=== PATIENT | male | born 1995 | race Caucasian/White ===

== ENCOUNTER 2020-08-20 09:24 | Observation (INO) ==
[2020-08-20] MEDS ORDERED: SODIUM CHLORIDE 0.9% 1000ML 1,000 ML IV ONE (09:38)
[2020-08-20] MEDS ORDERED: GI COCKTAIL ED USE PO ONE (09:38)
--- NOTE | 2020-08-20 09:41 | Emergency Department Note ---
Impression & Plan Spontaneous pneumothorax, Chest pain ED Provider Note NAME: AURORA RADFORD AGE: 24 SEX: M : 1995 ARRIVES VIA: Walk-In INFORMANT: Patient ED PROVIDER(S): Dioni Edouard DO CHIEF COMPLAINT: Chest pain HPI: Patient is a 24-year-old male who presents to the ER for midsternal chest pain which has been present constantly for the past 2 days. He notes it is w orse with laying flat and after eating and drinking. It improves when he is up moving around and walking. He denies any headache or change in vision. No arm or jaw pain. No belly pain, nausea, vomiting, or diarrhea. No dysuria, urgency, or frequency. No other exacerbating or remitting factors. Patient denies diabetes, hypertension, hyperlipidemia, CAD, history of sudden at a young age, and smoking. Patient denies swelling of calves, recent trips, history of immobilization or recent surgery, prior history of DVT, hemoptysis, and history of malignancy. Denies any trauma. ROS: See above HPI for pertinent positives & negatives. A total of 10 systems reviewed and were otherwise negative. PAST MEDICAL HISTORY:See Below PAST SURGICAL HISTORY:See Below FAMILY HISTORY:See Below SOCIAL HISTORY:See Below HOME MEDICATIONS:See Below ALLERGIES:See Below VITALS:See Below PHYSICAL EXAMINATION: GENERAL: Sitting up in bed, alert, well appearing, well nourished, no distress, non-toxic EYE EXAM: normal conjunctiva. OROPHARYNX: no exudate, no erythema, lips, buccal mucosa, and tongue normal and mucous membranes are moist NECK: supple, no nuchal rigidity, no adenopathy, non-tender LUNGS: Clear to auscultation. Normal chest wall mechanics HEART: no murmurs, S1 normal and S2 normal ABDOMEN: abdomen soft, non-tender, normo-active bowel sounds, no masses, no rebound or guarding. UPPER EXTREMITIES: upper extremities are grossly normal. LOWER EXTREMITIES: No pitting edema. Surgical bilateral NEURO EXAM: Normal sensorium, cranial nerves II-XII grossly intact, normal speech, no gross weakness of arms, no gross weakness of legs. MEDICAL DECISION MAKING: Patient is a 24-year-old male who presents to the ER for chest pain. IV was established blood work was obtained. Chest x-ray with a large right pneumothorax. Patient was placed on nonrebreather. Labs show no significant leukocytosis or anemia. D-dimer was negative. BMP with mild hypokalemia. LFTs bilirubin was unremarkable. Troponin was negative. Covid was negative. Chest x-ray with a large right-sided pneumothorax. This was reviewed with Dr. Schultz from pulmonology. I placed a chest tube on the right side. Added to small amount of wall suction and nearly completely resolved. He was removed from the wall suction. He was initially on a nonrebreather after we initially saw the chest x-ray. He was not hypoxic or hypotensive or tachycardic. He was updated bedside discussed with hospitalist admitted for further work-up. Triage Nursing notes reviewed. Limited review of prior medical records performed Vital Signs: reviewed and remarkable for HTN and tachy Differential diagnosis: Differential diagnoses includes but is not limited to acute coronary syndrome, myocardial infarction, pericarditis, pulmonary embolus, aortic dissection, pneumonia, pneumothorax, musculoskeletal, shingles, esophageal. ER treatment provided: See below Diagnostics interpreted by me: ECG: Sinus rhythm rate of 75 Normal axis No PVCs Right bundle branch block QTC 397 Cardiac Monitoring: An order was placed for continuous cardiac monitoring. The monitor shows a rate of 81 with sinus rhythm. Laboratory studies: As stated above and show below. Imaging studies: Portable AP upright 1 view the chest shows large right-sided pneumothorax Consultation(s): Discussed with pulmonology as stated above Discussed with hospitalist for further evaluation Procedures: Tube Thoracostomy Indication: Pneumothorax Written consent was obtained after the risks and benefits were explained, including but not limited to cardiac/liver/lung injury, bleeding, scarring, infection, pain, and bone/joint/nerve damage. At this time, the risks of the procedure are less than the risks of NOT performing the procedure. A time out was taken and the correct patient and site identified. The patient was prepped and draped in the standard surgical fashion. 1% lidocaine without epinephrine was infused over the 3rd intercostal space into the subcutaneous tissue. A 1 cm incision was made transversely in the mid clavicular line in the third intercostal space. Gentle traction was placed on the Thora vent. Entered chest wall cavity with movement of the one-way valve. Steel tipped was removed and catheter was inserted into the chest wall. For a short period of time this was placed to suction. Patient started coughing. Repeat chest x-ray confirms resolution of the pneumothorax. Critical Care: I have personally spent 31 minutes of critical care time in the direct management of this patient. This includes bedside care, interpretation of diagnostic studies, and testing, discussion with consultants, patient, and family members, and other required patient management activities. This 31 minutes is in excess of all separately billable procedures. Past Med/Surg History Medical History (Updated 08/20/20 @ 15:39 by Dioin Edouard DO) No active medical problems Surgical History (Updated 08/20/20 @ 12:17 by Eric Sherman DO) No pertinent past surgical history Family History (Updated 08/20/20 @ 12:18 by Eric Sherman DO) Denies family history of Pneumothorax Deep vein thrombosis Genetic disorder Lung disease Social History (Updated 08/20/20 @ 12:16 by Eric Sherman DO) Smoking Status: Never smoker Hx Alcohol Use: No Hx Substance Use: No Feels Safe at Home: Yes Allergies Allergies Allergy/AdvReac Type Severity Reaction Status Date / Time No Known Allergies Allergy Unverified 08/20/20 10:40 Home Meds Home Medications Medication Instructions Recorded Confirmed No Known Home Medications 08/20/20 08/20/20 Results & Data (ED) Vital Signs Vital Signs - 24 hr 08/20/20 09:26 08/20/20 09:52 08/20/20 10:00 Temperature 36.1 C L Temperature Source Temporal Artery Scan Pulse Rate 97 H 75 76 Pulse Rate from SpO2 Sensor Respiratory Rate 18 16 23 Respiratory Effort / Characteristics Non-Labored Respiratory Depth Normal Blood Pressure 150/99 H 115/80 124/86 Blood Pressure Mean 116 91 98 Pulse Oximetry 99 Oxygen Delivery Method Room Air Oxygen Flow Rate Sepsis Recent Fever Within 48 Hours No Sepsis New/Unexplained Change in Mental Status N/A Sepsis Action Taken by Nursing No Action Required 08/20/20 10:03 08/20/20 10:05 08/20/20 10:30 Temperature Temperature Source Pulse Rate 72 Pulse Rate from SpO2 Sensor 73 Respiratory Rate 22 Respiratory Effort / Characteristics Respiratory Depth Blood Pressure 141/93 H Blood Pressure Mean 109 Pulse Oximetry 100 100 100 Oxygen Delivery Method Non-rebreather Non-rebreather Oxygen Flow Rate 15 15 Sepsis Recent Fever Within 48 Hours Sepsis New/Unexplained Change in Mental Status Sepsis Action Taken by Nursing 08/20/20 11:00 08/20/20 11:27 08/20/20 11:30 Temperature Temperature Source Pulse Rate 78 84 84 Pulse Rate from SpO2 Sensor 75 83 87 Respiratory Rate 22 18 19 Respiratory Effort / Characteristics Respiratory Depth Blood Pressure 126/92 131/97 156/96 H Blood Pressure Mean 103 108 116 Pulse Oximetry 100 100 97 Oxygen Delivery Method Non-rebreather Non-rebreather Oxygen Flow Rate 15 15 Sepsis Recent Fever Within 48 Hours Sepsis New/Unexplained Change in Mental Status Sepsis Action Taken by Nursing 08/20/20 12:01 08/20/20 12:30 Temperature Temperature Source Pulse Rate 86 88 Pulse Rate from SpO2 Sensor 85 90 Respiratory Rate 25 H 22 Respiratory Effort / Characteristics Respiratory Depth Blood Pressure 154/109 H 143/89 H Blood Pressure Mean 124 107 Pulse Oximetry 100 97 Oxygen Delivery Method Oxygen Flow Rate Sepsis Recent Fever Within 48 Hours Sepsis New/Unexplained Change in Mental Status Sepsis Action Taken by Nursing Laboratory Data Result diagrams: 08/20/20 09:33 08/20/20 09:33 Lab Results 08/20/20 08/20/20 08/20/20 Range/Units 09:33 09:33 09:33 WBC 5.38 (4.8-10.8) K/uL RBC 5.63 (4.7-6.1) M/uL Hgb 17.8 (14.0-18.0) g/dL Hct 50.3 (42-52) % MCV 89.3 (80-100) fL MCH 31.6 (25-34) pg MCHC 35.4 (32-36) g/dL RDW Std Deviation 39.9 (36.4-46.3) fL RDW Coeff of Amalia 12.2 (11.5-14.5) % Plt Count 281 (130-400) K/uL MPV 9.8 (7.4-10.4) fL Immature Gran % (Auto) 0.0 % Neut % (Auto) 54.3 % Lymph % (Auto) 33.6 % [place] % (Auto) 9.3 % Eos % (Auto) 2.6 % Baso % (Auto) 0.2 % Neut # (Auto) 2.92 (1.4-6.5) K/uL Lymph # (Auto) 1.81 (1.2-3.4) K/uL [place] # (Auto) 0.50 (0.11-0.59) K/uL Eos # (Auto) 0.14 (0-0.5) K/uL Baso # (Auto) 0.01 (0-0.2) K/uL Immature Gran # (Auto) 0.00 (0.00-0.02) K/uL APTT 31.5 H (21.0-31.0) Seconds PTT Ratio 1.2 D-Dimer < 190 (0-500) ug/L FEU Sodium 141 (136-145) mmol/L Potassium 3.3 L (3.5-5.1) mmol/L Chloride 107 (98-107) mmol/L Carbon Dioxide 29 (21-32) mmol/L Anion Gap 5.0 (3-11) BUN 12 (7-18) mg/dl Creatinine 1.00 (0.6-1.4) mg/dl Est Cr Clr Drug Dosing 114.6 ml/min Est GFR ( Amer) 122.4 ml/min Est GFR (Non-Af Amer) 105.6 ml/min BUN/Creatinine Ratio 11.5 (10-20) Glucose 73 (70-99) mg/dl Calcium 10.2 H (8.5-10.1) mg/dl Total Bilirubin 0.9 (0.2-1) mg/dl AST 30 (15-37) U/L ALT 58 (12-78) U/L Alkaline Phosphatase 77 (45-117) U/L Troponin I < 0.015 (0-0.045) ng/ml Total Protein 8.5 H (6.4-8.2) gm/dl Albumin 5.1 H (3.4-5.0) gm/dl Globulin 3.4 (2.5-4.0) gm/dl Albumin/Globulin Ratio 1.5 (0.9-2) Lipase 134 (73-393) U/L COVID-19 Eval Order SARS-CoV-2 (PCR) (Negative) 08/20/20 08/20/20 Range/Units 10:40 10:40 WBC (4.8-10.8) K/uL RBC (4.7-6.1) M/uL Hgb (14.0-18.0) g/dL Hct (42-52) % MCV (80-100) fL MCH (25-34) pg MCHC (32-36) g/dL RDW Std Deviation (36.4-46.3) fL RDW Coeff of Amalia (11.5-14.5) % Plt Count (130-400) K/uL MPV (7.4-10.4) fL Immature Gran % (Auto) % Neut % (Auto) % Lymph % (Auto) % [place] % (Auto) % Eos % (Auto) % Baso % (Auto) % Neut # (Auto) (1.4-6.5) K/uL Lymph # (Auto) (1.2-3.4) K/uL [place] # (Auto) (0.11-0.59) K/uL Eos # (Auto) (0-0.5) K/uL Baso # (Auto) (0-0.2) K/uL Immature Gran # (Auto) (0.00-0.02) K/uL APTT (21.0-31.0) Seconds PTT Ratio D-Dimer (0-500) ug/L FEU Sodium (136-145) mmol/L Potassium (3.5-5.1) mmol/L Chloride (98-107) mmol/L Carbon Dioxide (21-32) mmol/L Anion Gap (3-11) BUN (7-18) mg/dl Creatinine (0.6-1.4) mg/dl Est Cr Clr Drug Dosing ml/min Est GFR ( Amer) ml/min Est GFR (Non-Af Amer) ml/min BUN/Creatinine Ratio (10-20) Glucose (70-99) mg/dl Calcium (8.5-10.1) mg/dl Total Bilirubin (0.2-1) mg/dl AST (15-37) U/L ALT (12-78) U/L Alkaline Phosphatase (45-117) U/L Troponin I (0-0.045) ng/ml Total Protein (6.4-8.2) gm/dl Albumin (3.4-5.0) gm/dl Globulin (2.5-4.0) gm/dl Albumin/Globulin Ratio (0.9-2) Lipase (73-393) U/L COVID-19 Eval Order Covid19 at [facility] SARS-CoV-2 (PCR) NEGATIVE (Negative) Administered Medications Oxycodone HCl (Oxycodone Hcl Ir 5 Mg Tab (Immediate Release)) 5 mg PO Q6H PRN PRN Reason: Pain Stop: 09/03/20 14:47 Last Admin: 08/20/20 15:00 Dose: 5 mg Documented by: [id number] Discontinued Medications Al Hydrox/Mg Hydrox/Simethicone (Gi Cocktail Ed Use) 1 dose PO ONE ONE Stop: 08/20/20 09:39 Last Admin: 08/20/20 09:50 Dose: 1 dose Documented by: [id number] Fentanyl Citrate (Fentanyl Citrate 100 Mcg/2 Ml Vial) Confirm Administered Dose 100 mcg .ROUTE .STK-MED ONE Stop: 08/20/20 11:10 Last Admin: 08/20/20 11:20 Dose: 100 mcg Documented by: [id number] Sodium Chloride (Nss 1000ml) 1,000 mls @ 999 mls/hr IV .Q1H1M ONE Stop: 08/20/20 10:38 Last Infusion: 08/20/20 10:57 Dose: 0 mls/hr Documented by: [id number] Admin: 08/20/20 09:50 Dose: 999 mls/hr Documented by: [id number] Lidocaine HCl (Lidocaine Hcl 2% (Local) Inj 50 Ml Vial) Confirm Administered Dose 50 ml .ROUTE .STK-MED ONE Stop: 08/20/20 11:15 Last Admin: 08/20/20 11:41 Dose: 50 ml Documented by: [id number] Imaging Data Radiologist's Impression: Chest X-Ray 08/20/20 09:33 XR chest 1V portable CLINICAL HISTORY: Atypical chest pain COMPARISON STUDY: No previous studies for comparison. FINDINGS: The heart is normal in size. There is a moderate to large right-sided pneumothorax.[There is equivocal minimal "tension". There is no focal pulmonary consolidation. There are no significant pleural effusions. IMPRESSION: 1. Moderate to large right-sided pneumothorax. This report was called to the emergency room. ACT 112: Negative or not required by law. Electronically signed by: Kamar Arcos M.D. 08/20/2020 9:52 AM Chest X-Ray 08/20/20 11:26 SINGLE VIEW CHEST CLINICAL HISTORY: Chest tube placement. FINDINGS: An AP, portable, upright chest radiograph is compared to study performed earlier the same day 08/20/2020. A chest tube projects over the right mid chest. There is a moderate to large persistent right pneumothorax. This has not significantly changed from previous. There is atelectasis of the right lower lung. The cardiomediastinal silhouette is unremarkable. The left lung appears clear. The trachea is midline. No left-sided pneumothorax is seen. The bony thorax is grossly intact. IMPRESSION: 1. A chest tube projects over the right mid chest. 2. A moderate to large right pneumothorax is unchanged. 3. There is increasing atelectasis of the right lower lung. 4. The left lung appears clear. 5. The trachea is midline. ACT 112: Negative or not required by law. Electronically signed by: Joce Mclean M.D. 08/20/2020 12:09 PM Chest X-Ray 08/20/20 12:13 XR chest 1V portable CLINICAL HISTORY: pneumothorax COMPARISON STUDY: 08/20/2020 FINDINGS: A right-sided pleural catheter is visualized. There is been interval reexpansion of the right lung. There are right basilar airspace opacities, likely atelectatic.[ IMPRESSION: 1. Interval resolution of the previously described right-sided pneumothorax 2. Right basilar airspace opacities likely atelectatic ACT 112: Negative or not required by law. Electronically signed by: Kamar Arcos M.D. 08/20/2020 12:33 PM Discharge Plan Visit Data Chief Complaint: Chest Pain Stated Complaint: CHEST PAINx2 DAYS,TROUBLE BREATHING,PAIN IN THROAT ED Provider: Dioin Edouard Discharge Problem: Spontaneous pneumothorax, Chest pain Patient Disposition: Admitted As Inpatient Discharge Instructions Interventions: ED Discharge Assessment Last Done: 08/20/20 13:25 Discharge Problem: Chest pain Qualifiers: Chest pain type: unspecified Qualified Code(s): R07.9 - Chest pain, unspecified
--- NOTE | 2020-08-20 09:54 | XRay Report ---
XR chest 1V portable CLINICAL HISTORY: Atypical chest pain COMPARISON STUDY: No previous studies for comparison. FINDINGS: The heart is normal in size. There is a moderate to large right-sided pneumothorax.[There i s equivocal minimal "tension". There is no focal pulmonary consolidation. There are no significant pl eural effusions. IMPRESSION: 1. Moderate to large right-sided pneumothorax. This report was called to the emergency room. ACT 112: Negative or not required by law. Electronically signed by: Kamar Arcos M.D. 08/20/2020 9:52 AM
[2020-08-20 09:56] LABS: Basophils # (auto) 0.01 K/uL (0-0.2); Basophils % (auto) 0.2 %; Eosinophils # (auto) 0.14 K/uL (0-0.5); Eosinophils % (auto) 2.6 %; Hematocrit (blood only) 50.3 % (42-52); Hemoglobin 17.8 g/dL (14.0-18.0); Lymphocytes # (auto) 1.81 K/uL (1.2-3.4); Lymphocytes % (auto) 33.6 %; Mean Corpuscular Hemoglobin 31.6 pg (25-34); Mean Corpuscular Hgb Conc 35.4 g/dL (32-36); Mean Corpuscular Volume 89.3 fL (80-100); Mean Platelet Volume 9.8 fL (7.4-10.4); Monocytes % (auto) 9.3 %; Neutrophils # (auto) 2.92 K/uL (1.4-6.5); Neutrophils % (auto) 54.3 %; Platelet Count 281 K/uL (130-400); RDW Coefficient of Variation 12.2 % (11.5-14.5); RDW Standard Deviation 39.9 fL (36.4-46.3); Red Blood Count 5.63 M/uL (4.7-6.1); White Blood Count 5.38 K/uL (4.8-10.8)
[2020-08-20 10:16] LABS: Alanine Aminotransferase 58 U/L (12-78); Albumin Level 5.1 gm/dl (3.4-5.0); Aspartate Aminotransferase 30 U/L (15-37); BUN Creatinine Ratio 11.5 (10-20); Blood Urea Nitrogen 12 mg/dl (7-18); Calcium 10.2 mg/dl (8.5-10.1); Carbon Dioxide 29 mmol/L (21-32); Chloride 107 mmol/L (98-107); Creatinine Clr Calc Pharmacy 114.6 ml/min; Est GFR (African American) 122.4 ml/min; Est GFR (Non-African American) 105.6 ml/min; Glucose 73 mg/dl (70-99); Lipase 134 U/L (73-393); Potassium 3.3 mmol/L (3.5-5.1); Sodium 141 mmol/L (136-145)
[2020-08-20 10:21] LABS: Albumin Globulin Ratio 1.5 (0.9-2); Alkaline Phosphatase 77 U/L (45-117); Bilirubin,Total 0.9 mg/dl (0.2-1); Globulin 3.4 gm/dl (2.5-4.0); Total Protein 8.5 gm/dl (6.4-8.2); Troponin I < 0.015 ng/ml (0-0.045)
[2020-08-20 10:23] LABS: D Dimer < 190 ug/L FEU (0-500); Partial Thromboplastin Ratio 1.2; Partial Thromboplastin Time 31.5 Seconds (21.0-31.0)
[2020-08-20] MEDS ORDERED: fentaNYL citrate 100 MCG/2 ML VIAL ONE (11:09)
[2020-08-20] MEDS ORDERED: LIDOCAINE 2% LOCAL 50 ML VIAL ONE (11:14)
--- NOTE | 2020-08-20 12:11 | XRay Report ---
SINGLE VIEW CHEST CLINICAL HISTORY: Chest tube placement. FINDINGS: An AP, portable, upright chest radiograph is compared to study performed earlier the same d ay 08/20/2020. A chest tube projects over the right mid chest. There is a moderate to large persistent right pneumothorax. This has not significantly changed from previous. There is atelectasis of the ri ght lower lung. The cardiomediastinal silhouette is unremarkable. The left lung appears clear. The tr achea is midline. No left-sided pneumothorax is seen. The bony thorax is grossly intact. IMPRESSION: 1. A chest tube projects over the right mid chest. 2. A moderate to large right pneumothorax is unchanged. 3. There is increasing atelectasis of the right lower lung. 4. The left lung appears clear. 5. The trachea is midline. ACT 112: Negative or not required by law. Electronically signed by: Joce Mclean M.D. 08/20/2020 12:09 PM
--- NOTE | 2020-08-20 12:12 | History & Physical Report ---
Date of Service August 20, 2020 Assessment & Plan (1) Spontaneous pneumothorax: Acute decompression emergency room We will consult general surgery for possible chest tube placement Consult pulmonology per patient request, consideration of underlying cause I did answer questions best my ability, patient does not have any obvious evidence of genetic disorder, lung disease. Suspect idiopathic pneumothorax History of Present Illness Chief Complaint: Chest pain Primary Care Provider: NO PCP This is a 24-year-old male with no past medical history presents today complaining of 2 days of chest pain. Patient is a good historian. As noted, this started approximately 2 days ago. He had a brief episode that seem to be self-limited but became much worse today and was constant. He noted that it was worse when he was lying flat but better standing up. He had no cough, congestion, fever/chills, or other symptoms. The symptoms became worse enough that he presented to the emergency room for further evaluation. Plain film of the chest showed a large pneumothorax in the right chest. ER placed a small needle decompression device in his right chest. At the time my evaluation, patient was feeling much better. His O2 sats were 96% on room air after nonrebreather was removed. Allergies Allergy/AdvReac Type Severity Reaction Status Date / Time No Known Allergies Allergy Unverified 08/20/20 10:40 Home Medications Medication Instructions Recorded Confirmed Type No Known Home Medications 08/20/20 08/20/20 History Past Med/Surg History Medical History (Updated 08/20/20 @ 12:20 by Eric Sherman DO) No active medical problems Surgical History (Updated 08/20/20 @ 12:17 by Eric Sherman DO) No pertinent past surgical history Family History (Updated 08/20/20 @ 12:18 by Eric Sherman DO) Denies family history of Pneumothorax Deep vein thrombosis Genetic disorder Lung disease Social History (Updated 08/20/20 @ 12:16 by Eric Sherman DO) Smoking Status: Never smoker Hx Alcohol Use: No Hx Substance Use: No Feels Safe at Home: Yes Review of Systems Constitutional: no fever, no chills, no body aches and no fatigue Respiratory: + dyspnea on exertion and + pain on inspiration; no cough, no chest congestion and no dyspnea Cardiovascular: no chest pain, no chest pain at rest, no radiating jaw, neck or arm pain, no dyspnea, no dyspnea on exertion and no orthopnea Gastrointestinal: no abdominal pain, no early satiety, no nausea, no vomiting, no constipation and no diarrhea/loose stools Genitourinary: no dysuria, no difficulty urinating, no urinary hesitancy and no urinary incontinence Integumentary: no rash and no lesions Neurologic: no falls and no localized weakness Physical Exam Constitutional: WD/WN, vitals as above average body habitus, cooperative and comfortable; no acute distress Respiratory: normal respiratory effort, lungs clear to auscultation Auscultation: lungs clear to auscultation bilaterally Rosangela depression device spot on right chest Cardiovascular: RRR, no murmur, no edema Gastrointestinal (Abdomen): normal bowel sounds, soft, nontender, no hepatosplenomegaly Musculoskeletal: no cyanosis or clubbing, extremities motor strength 5/5 Skin: no rashes, warm and dry Neurologic: PERRL, EOMI, accommodation nl, no face palsy, no dysarthria Results & Data Results & Data ([facility]) Vital Signs (Past 12 Hours) Vital Signs Temp Pulse Resp BP Pulse Ox 08/20/20 11:30 84 19 156/96 H 97 08/20/20 11:27 84 18 131/97 100 08/20/20 11:00 78 22 126/92 100 08/20/20 10:30 72 22 141/93 H 100 08/20/20 10:05 100 08/20/20 10:03 100 08/20/20 10:00 76 23 124/86 08/20/20 09:52 75 16 115/80 08/20/20 09:26 36.1 C L 97 H 18 150/99 H 99 PG Care Time/CCT Total # of Minutes Spent Total Time Spent with Patient: Total time spent is greater than 50% in coordination of care (as documented) at patient's floor/unit and/or counseling patient: Coding Level of Care Code 54690 Initial Inpt Care Lvl 3 Diagnoses Spontaneous pneumothorax J93.83
--- NOTE | 2020-08-20 12:35 | XRay Report ---
XR chest 1V portable CLINICAL HISTORY: pneumothorax COMPARISON STUDY: 08/20/2020 FINDINGS: A right-sided pleural catheter is visualized. There is been interval reexpansion of the rig ht lung. There are right basilar airspace opacities, likely atelectatic.[ IMPRESSION: 1. Interval resolution of the previously described right-sided pneumothorax 2. Right basilar airspace opacities likely atelectatic ACT 112: Negative or not required by law. Electronically signed by: Kamar Arcos M.D. 08/20/2020 12:33 PM
--- NOTE | 2020-08-20 13:47 | Electrocardiogram Report ---
Test Reason : Blood Pressure : / mmHG Vent. Rate : 075 BPM Atrial Rate : 075 BPM P-R Int : 148 ms QRS Dur : 092 ms QT Int : 356 ms P-R-T Axes : 087 086 075 degrees QTc Int : 397 ms Sinus rhythm with marked sinus arrhythmia RSR' or QR pattern in V1 suggests right ventricular conduction delay Otherwise normal ECG No previous ECGs available Confirmed by Carlos Arenas ([id number]) on 08/20/2020 1:46:37 PM Referred By: Confirmed By:Carlos Arenas
[2020-08-20] MEDS ORDERED: ONDANSETRON INJ 2 MG/ML 2 ML VIAL IV PRN (14:09)
[2020-08-20] MEDS ORDERED: ACETAMINOPHEN 325 MG TAB PO PRN (14:09)
[2020-08-20] MEDS: oxyCODONE HCL IR 5 MG TAB (IMMEDIATE RELEASE) PO PRN ×2 (15:00→22:44)
--- NOTE | 2020-08-20 16:58 | Pulmonary Consultation ---
Date of Consultation August 20, 2020 Assessment & Plan (1) Spontaneous pneumothorax: Chest x-ray 08/20/2020 personally reviewed: Large right-sided pneumothorax with mediastinal shift to the left. --Primary spontaneous pneumothorax Patient has no underlying known lung disease like asthma or COPD This is his first episode Patient already had a chest tube placement. No subcu emphysema appreciated No air leak appreciated Continue to keep chest tube to waterseal --Shortness of breath Improved after putting the chest tube in Plan: Continue with chest tube to waterseal No air leak was appreciated on currently to suction I will do a CT chest to see if there are any underlying blebs which are the most common causes of primary spontaneous pneumothoraces Given there is no continuous air leak there is no current indication for VATS. Pain management further chest side pain I spoke with patient as well as patient's father on the phone. All questions inquiries of both of them were answered in depth. Please note the above document was generated using voice recognition software. It may contain grammatical, syntax or spelling errors.Any formal questions or concerns about the content, text or information contained within the body of this dictation should be directly addressed to the provider for clarification. (2) Chest pain: Chest pain type: unspecified Qualified Code(s): R07.9 - Chest pain, unspecified (3) Shortness of breath: (4) Bleb, lung: History of Present Illness Attending Physician: Eric Sherman DO History of Present Illness 24-year-old male present to the hospital with complaints of right-sided chest pain and worsening shortness of breath. Patient was found to have right-sided tension pneumothorax. Pulmonary were consulted to take care of of the chest tube I was given a call by Dr. Edouard from the ED regarding the pneumothorax. I advised him to put chest tube as soon as possible At the time of examination patient already had a chest tube placed in. His chest x-ray post chest tube showed good reinflation of the lung. With very small right apical pneumo There was no air leak appreciated Patient did complain of chest pain at the site of the chest tube but it was not severe enough. His breathing was much better compared to when he came to the hospital. He denies any history of trauma to the right side of the chest. 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 Denies any recent gliding, diving or flying in a plane. He denies any history of pneumothoraces in the past He did say that when he was a child he had bad infection in the lung unsure which lung it was. Social history: Non-smoker, no illicit drug use, no alcohol use. Denies any family history of any lung disease. Allergies Allergy/AdvReac Type Severity Reaction Status Date / Time No Known Allergies Allergy Unverified 08/20/20 10:40 Home Medications Medication Instructions Recorded Confirmed Type No Known Home Medications 08/20/20 08/20/20 History Patient History Medical History (Updated 08/21/20 @ 09:51 by Marizol White MD) No active medical problems Surgical History (Updated 08/20/20 @ 12:17 by Eric Sherman DO) No pertinent past surgical history Family History (Updated 08/20/20 @ 12:18 by Eric Sherman DO) Denies family history of Pneumothorax Deep vein thrombosis Genetic disorder Lung disease Social History (Updated 08/20/20 @ 12:16 by Eric Sherman DO) Smoking Status: Never smoker Second Hand Exposure: No; Do You Dip or Chew Tobacco: No; Tobacco Cessation Education Requested by Patient: No Hx Alcohol Use: No Hx Substance Use: No Preferred Language: Setswana Communication Ability: Effective Assurance Assistant Required: No Beliefs That Will Affect Care: None Current Living Situation: Other Current Living Situation Comment: [employer] Feels Safe at Home: Yes Safety Concerns: Feels Safe At This Time Assistive Devices: None Review of Systems Review of Systems: All systems reviewed & are unremarkable except as noted in HPI & below Physical Exam Physical Exam: Constitutional: No acute distress HEENT: EOMI, PERRLA, no subcu emphysema Respiratory system: Decreased air entry bilaterally, no wheeze, no rhonchi, no crackles CVS: S1-S2 positive, no murmurs or gallops Abdomen: Soft, nontender, nondistended, positive bowel sounds x4 Extremities: +2 pulses bilaterally radialis/ dorsalis pedis, no cyanosis, no edema, no clubbing Neuro: Awake alert oriented x3 Psych: Normal mood and affect G/U: No [facility] Right-sided chest tube in place Skin: no rashes, warm and dry Lymphatic: no cervical or axillary lymphadenopathy Results & Data Results & Data ([facility]) Vital Signs (Past 12 Hours) Vital Signs Temp Pulse Pulse Resp BP BP Pulse Ox 08/20/20 14:15 36.8 C 82 20 129/85 98 08/20/20 13:00 78 19 132/83 97 08/20/20 12:30 88 22 143/89 H 97 08/20/20 12:01 86 25 H 154/109 H 100 08/20/20 11:30 84 19 156/96 H 97 08/20/20 11:27 84 18 131/97 100 08/20/20 11:00 78 22 126/92 100 08/20/20 10:30 72 22 141/93 H 100 08/20/20 10:05 100 08/20/20 10:03 100 08/20/20 10:00 76 23 124/86 08/20/20 09:52 75 16 115/80 08/20/20 09:26 36.1 C L 97 H 18 150/99 H 99 PG Care Time/CCT Total # of Minutes Spent Total Time Spent with Patient: Total time spent is greater than 50% in coordination of care (as documented) at patient's floor/unit and/or counseling patient: Coding Level of Care Code 25524 Inpt Consult Level 4 Diagnoses Spontaneous pneumothorax J93.83 Chest pain R07.9 Chest pain type: unspecified Shortness of breath R06.02 Bleb, lung J43.9
--- NOTE | 2020-08-20 17:40 | CT Scan Report ---
CT chest diagnostic wo con CT DOSE: 287.56 mGy.cm HISTORY: Follow-up pneumothorax. Evaluate for a bladder. TECHNIQUE: Multiaxial CT images of the chest were performed without contrast. A dose lowering techni que was utilized adhering to the principles of ALARA. COMPARISON: Chest 08/20/2020. FINDINGS: There is a tiny right-sided pneumothorax remaining. There is a cluster of right apical bleb s best seen on image 30. These measure a total size of 3.5 cm. Right anterior thoracostomy tube termi nates within the anterior pleural space. This is in good position. Multiple linear densities within t he right mid to lower lung zone favor subsegmental atelectasis. There are a few additional tiny left apical blebs measuring up to 6 mm in size. The central airways are patent. No fractures within the vi sualized osseous structures. No mediastinal or hilar lymphadenopathy. The heart is normal in size. No pleural or pericardial effusions. Normal esophagus. There are few punctate foci of gas within the me diastinum likely result of the right-sided pneumothorax. Normal caliber thoracic aorta. Limited views of the upper abdomen demonstrate a normal liver and spleen. IMPRESSION: 1. Tiny right-sided pneumothorax remaining. The right-sided thoracostomy tube is in good position. 2. A cluster of right apical blebs measuring a total size of 3.5 cm. There are few subcentimeter left apical blebs noted. 3. A few punctate foci of gas within the mediastinum likely a result of the right-sided pneumothorax. ACT 112: Negative or not required by law. Electronically signed by: Emanuel Lao M.D. 08/20/2020 5:39 PM
--- NOTE | 2020-08-21 08:39 | XRay Report ---
XR chest 1V portable HISTORY: Follow-up pneumothorax. COMPARISON: Chest 08/20/2020. FINDINGS: Near complete resolution of the right lower lobe airspace opacities likely representing res olving atelectasis. Tiny right apical pneumothorax persists with a maximal pleural gap of 5 mm. Right -sided thoracostomy tube is unchanged in position. The left lung is clear. The heart is normal in siz e. IMPRESSION: Stable tiny right apical pneumothorax. The right thoracostomy tube is unchanged in position. ACT 112: Negative or not required by law. Electronically signed by: Emanuel Lao M.D. 08/21/2020 8:37 AM
--- NOTE | 2020-08-21 09:51 | Pulmonology Progress Note ---
Date of Service August 21, 2020 Assessment & Plan (1) Spontaneous pneumothorax: Chest x-ray 08/20/2020 personally reviewed: Large right-sided pneumothorax with mediastinal shift to the left. CT chest 08/20/2020 personally reviewed: Multiple blebs are appreciated in the right upper lobe apex, small bleb appreciated in the left upper lobe right-sided chest tube in place. Minimal atelectasis of the right middle lobe as well as right lower l obe. No mediastinal lymphadenopathy --Primary spontaneous pneumothorax Patient has no underlying known lung disease like asthma or COPD This is his first episode Patient already had a chest tube placement. No subcu emphysema appreciated No air leak appreciated Continue to keep chest tube to waterseal --Bilateral apical blebs More prominent in the right side I think rupture one of the blebs is most likely the reason of his spontaneous pneumothorax Patient will always be at risk for recurrent spontaneous pneumothorax in the future --Shortness of breath Improved after putting the chest tube in Plan: Chest x-ray from today shows small apical pneumo I am going to clamp the tube today repeat a chest x-ray tomorrow and if there is no change in size of the pneumo we will try to take the tube out Patient will always be a high risk for recurrent pneumothorax. Given this is primary spontaneous pneumo and patient not participating in any high risk activities, there is no clear indication for patient to undergo VATS. Please note the above document was generated using voice recognition software. It may contain grammatical, syntax or spelling errors.Any formal questions or concerns about the content, text or information contained within the body of this dictation should be directly addressed to the provider for clarification. (2) Chest pain: Chest pain type: unspecified Qualified Code(s): R07.9 - Chest pain, unspecified (3) Shortness of breath: (4) Bleb, lung: Admission and Anticipated Discharge Date Admission Date: August 20, 2020 Subjective Patient seen and examined at bedside. No acute distress, no adverse events overnight. Patient still complains of mild chest discomfort at the site of the chest tube. Chest he was connected to waterseal. No air leak was appreciated. No subcu emphysema. Denies any headache, no shortness of breath. Fair appetite Review of Systems Review of Systems: All systems reviewed & are unremarkable except as noted in Subjective Physical Exam Physical Exam: Constitutional: No acute distress HEENT: EOMI, PERRLA, no subcu emphysema Respiratory system: Decreased air entry bilaterally, no wheeze, no rhonchi, no crackles CVS: S1-S2 positive, no murmurs or gallops Abdomen: Soft, nontender, nondistended, positive bowel sounds x4 Extremities: +2 pulses bilaterally radialis/ dorsalis pedis, no cyanosis, no edema, no clubbing Neuro: Awake alert oriented x3 Psych: Normal mood and affect G/U: No [facility] Right-sided chest tube in place Skin: no rashes, warm and dry Lymphatic: no cervical or axillary lymphadenopathy Results & Data Results & Data ([facility]) Vital Signs (Past 12 Hours) Vital Signs Temp Pulse Pulse Pulse Resp BP Pulse Ox 08/21/20 08:00 49 L 08/21/20 07:37 36.6 C 61 18 116/70 97 08/21/20 03:00 36.4 C L 53 L 20 100/64 98 08/20/20 23:27 63 08/20/20 23:00 36.6 C 99 H 20 102/69 97 08/20/20 09:33 08/20/20 09:33 PG Care Time/CCT Total # of Minutes Spent Total Time Spent with Patient: Total time spent is greater than 50% in coordination of care (as documented) at patient's floor/unit and/or counseling patient: Coding Level of Care Code 89762 Subseq Hosp Care Lvl 3 Diagnoses Spontaneous pneumothorax J93.83 Chest pain R07.9 Chest pain type: unspecified Shortness of breath R06.02 Bleb, lung J43.9
--- NOTE | 2020-08-21 13:18 | Hospitalist Progress Note ---
Date of Service August 21, 2020 Assessment & Plan (1) Spontaneous pneumothorax: most likely primary spontaneous pneumothorax (PSP) patient is tall thin male reported that the pain started suddenly, no trauma, he is not a smoker CT chest with apical blebs on right side measuring 3.5cm, there are also a few subcentimeter apical blebs on left side continue chest tube, clamped today CXR with near resolution of PTX, just small 5mm apical PTX d/w Dr. White, will repeat CXR in the morning on 08/22 and plan to pull tube Admission and Anticipated Discharge Date Admission Date: August 20, 2020 Subjective patient is breathing much better compared to when he presented to the ED he says he had right sided chest pain and shortness of breath for about two days reviewed the chart, he had right sided pneumothorax, spontaneous CT chest showed some apical blebs discussed with Dr. White, CXR this morning is improved, shows 5mm apical pneumothorax Dr. White plans to clamp the tube, repeat CXR in the morning, if stable he will take out the tube and he can go in afternoon I discussed PSP with the patient, explained it was common in tall thin males like himself explained blebs and that we really don't know what causes them but can be fixed with surgical resection if needed gave him some reading materials on PSP I spoke with his father over the phone and answered all his questions his father said that the patient had severe case of pneumonia when he was 10 that required hospitalization patient was not intubated and did not require any type of procedures, just inpatient care both patient and his father wonder if this is related, I said I was highly doubtful that it was related, likely has blebs as a result of his lung development the patient plans to follow up with [facility] and thoracic surgeon back home in [facility] Review of Systems Review of Systems: All systems reviewed & are unremarkable except as noted in Subjective Constitutional: no fever, no chills, no sweats, no fatigue and no weakness Respiratory: no cough, no chest congestion, no dyspnea, no dyspnea on exertion and no pain with cough Cardiovascular: no chest pain Gastrointestinal: no abdominal pain, no nausea, no vomiting, no constipation and no diarrhea/loose stools Results & Data Results & Data ([facility]) Vital Signs (Past 12 Hours) Vital Signs Temp Pulse Pulse Resp BP Pulse Ox 08/21/20 11:23 36.9 C 59 L 16 106/66 97 08/21/20 08:00 49 L 08/21/20 07:37 36.6 C 61 18 116/70 97 08/21/20 03:00 36.4 C L 53 L 20 100/64 98 Diagnostic Findings XR chest 1V portable HISTORY: Follow-up pneumothorax. COMPARISON: Chest 08/20/2020. FINDINGS: Near complete resolution of the right lower lobe airspace opacities likely representing resolving atelectasis. Tiny right apical pneumothorax persists with a maximal pleural gap of 5 mm. Right-sided thoracostomy tube is unchanged in position. The left lung is clear. The heart is normal in size. IMPRESSION: Stable tiny right apical pneumothorax. The right thoracostomy tube is unchanged in position. Medications Administered Current Inpatient Medications Acetaminophen (Acetaminophen 325 Mg Tab) 650 mg PO Q4H PRN PRN Reason: pain/fever Stop: 09/19/20 14:08 Ondansetron HCl (Ondansetron Inj 2 Mg/Ml 2 Ml Vial) 4 mg IV Q6H PRN PRN Reason: Nausea Stop: 09/19/20 14:08 Oxycodone HCl (Oxycodone Hcl Ir 5 Mg Tab (Immediate Release)) 5 mg PO Q6H PRN PRN Reason: Pain Stop: 09/03/20 14:47 Last Admin: 08/20/20 22:44 Dose: 5 mg Documented by: PG Care Time/CCT Total # of Minutes Spent Total Time Spent: 35 Total Time Spent with Patient: Total time spent is greater than 50% in coordination of care (as documented) at patient's floor/unit and/or counseling patient: spent total of 25 minutes speaking with patient and then speaking with his father about PSP and about treatment plan answered their questions to the best of my ability spent 10 minutes on chart review, documentation, speaking with Dr. White Prolonged Care Time Prolonged Care Time: No Coding Level of Care Code 66314 Subseq Hosp Care Lvl 3 Diagnoses Spontaneous pneumothorax J93.83
--- NOTE | 2020-08-22 08:34 | XRay Report ---
XR chest 1V portable HISTORY: Pneumothorax. Follow-up. COMPARISON: Chest 08/21/2020. FINDINGS: Right-sided thoracostomy tube is unchanged in position. Tiny right apical pneumothorax is s imilar to the prior study. This demonstrates a maximal pleural gap of 5 mm. The lungs are clear. The heart is normal in size. No rib fractures. IMPRESSION: Stable tiny right pneumothorax. ACT 112: Negative or not required by law. Electronically signed by: Emanuel Lao M.D. 08/22/2020 8:32 AM
--- NOTE | 2020-08-22 09:29 | Pulmonology Progress Note ---
Date of Service August 22, 2020 Assessment & Plan (1) Spontaneous pneumothorax: Chest x-ray 08/20/2020 personally reviewed: Large right-sided pneumothorax with mediastinal shift to the left. CT chest 08/20/2020 personally reviewed: Multiple blebs are appreciated in the right upper lobe apex, small bleb appreciated in the left upper lobe right-sided chest tube in place. Minimal atelectasis of the right middle lobe as well as right lower l obe. No mediastinal lymphadenopathy --Primary spontaneous pneumothorax Patient has no underlying known lung disease like asthma or COPD This is his first episode Patient already had a chest tube placement. 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 No clear signs of pneumothorax. The right apical lucency seems to be left rather than pneumothorax. Plan would be to remove the chest tube today. We'll repeat a chest x-ray 4 hours after the tube has been taken off. If there is no worsening of the pneumothorax patient should be stable from pulmonary perspective. Patient will always be a high risk for recurrent pneumothorax. Given this is primary spontaneous pneumo and patient not participating in any high risk activities, no lifting of more than 5 pounds of weight, no swimming, no flying for at least 4 to 6 weeks. Patient can gradually go back to his normal routine appetite. Please note the above document was generated using voice recognition software. It may contain grammatical, syntax or spelling errors.Any formal questions or concerns about the content, text or information contained within the body of this dictation should be directly addressed to the provider for clarification. (2) Chest pain: Chest pain type: unspecified Qualified Code(s): R07.9 - Chest pain, unspecified (3) Shortness of breath: (4) Bleb, lung: Admission and Anticipated Discharge Date Admission Date: August 20, 2020 Subjective Patient seen and examined at bedside. No acute distress. No adverse events overnight. Patient's chest tube has been clamped since yesterday afternoon. The time of examination patient complains of mild discomfort at the chest side which has not changed since the chest tube has been placed. Denies any shortness of breath, no headache, no cough, no nausea or vomiting. Fair appetite. Review of Systems Review of Systems: All systems reviewed & are unremarkable except as noted in Subjective Physical Exam Physical Exam: Constitutional: No acute distress HEENT: EOMI, PERRLA, no subcu emphysema Respiratory system: Decreased air entry bilaterally, no wheeze, no rhonchi, no crackles CVS: S1-S2 positive, no murmurs or gallops Abdomen: Soft, nontender, nondistended, positive bowel sounds x4 Extremities: +2 pulses bilaterally radialis/ dorsalis pedis, no cyanosis, no edema, no clubbing Neuro: Awake alert oriented x3 Psych: Normal mood and affect G/U: No [facility] Right-sided chest tube in place Skin: no rashes, warm and dry Lymphatic: no cervical or axillary lymphadenopathy Results & Data Results & Data ([facility]) Vital Signs (Past 12 Hours) Vital Signs Temp Pulse Pulse Resp BP Pulse Ox 08/22/20 07:32 36.5 C 79 18 105/65 95 08/22/20 02:42 36.5 C 59 L 18 107/66 97 08/22/20 00:03 47 L 08/21/20 22:42 36.4 C L 50 L 18 105/64 98 08/20/20 09:33 08/20/20 09:33 PG Care Time/CCT Total # of Minutes Spent Total Time Spent with Patient: Total time spent is greater than 50% in coordination of care (as documented) at patient's floor/unit and/or counseling patient: Coding Level of Care Code 38630 Subseq Hosp Care Lvl 3 Diagnoses Spontaneous pneumothorax J93.83 Chest pain R07.9 Chest pain type: unspecified Shortness of breath R06.02 Bleb, lung J43.9
--- NOTE | 2020-08-22 09:31 | Procedure Note ---
Procedure Note Date of Service August 22, 2020 Procedure: Pigtail chest tube removal Safety Engineer: Dr. Marizol White Indication: Removal Verbal consent was obtained from the patient prior to taking the tube out. Procedure: Under sterile condition the right-sided Thora-Vent was removed on exhalation. Vaseline gauze was applied and 4 x 4 gauze on top of it. The patient tolerated the procedure without obvious complication Complications: None Blood loss: None Coding CPT Codes Pulmonary/Thoracic - Pulmonary and Thoracic: 41431 Remove lung catheter ([id number]) [facility] [place] Procedure Codes (Charges) Pulmonary/Thoracic Procedure 1: Pulmonary and Thoracic: 37526 Remove lung catheter
--- NOTE | 2020-08-22 14:00 | XRay Report ---
SINGLE VIEW CHEST CLINICAL HISTORY: Follow-up pneumothorax. Chest tube removal. FINDINGS: An AP, portable, upright chest radiograph is compared to study dated 08/22/2020. A right-lucy ed chest tube has been removed. There is trace residual right apical pneumothorax with approximately 9 mm of pleural separation. The cardiomediastinal silhouette is unremarkable. No airspace consolidati on or pleural effusion is identified. There is no left-sided pneumothorax. The bony thorax is grossly intact. IMPRESSION: 1. A right-sided chest tube has been removed. 2. There is trace residual right apical pneumothorax. ACT 112: Negative or not required by law. Electronically signed by: Joce Mclean M.D. 08/22/2020 1:59 PM
--- NOTE | 2020-08-24 09:31 | Discharge Summary ---
Date of Service August 22, 2020 Admission HPI Per Admitting Provider This is a 24-year-old male with no past medical history presents today complaining of 2 days of chest pain. Patient is a good historian. As noted, this started approximately 2 days ago. He had a brief episode that seem to be self-limited but became much worse today and was constant. He noted that it was worse when he was lying flat but better standing up. He had no cough, congestion, fever/chills, or other symptoms. The symptoms became worse enough that he presented to the emergency room for further evaluation. Plain film of the chest showed a large pneumothorax in the right chest. ER placed a small needle decompression device in his right chest. At the time my evaluation, patient was feeling much better. His O2 sats were 96% on room air after nonrebreather was removed. Principal Diagnosis Primary spontaneous pneumothorax Discharge Exam Constitutional WD/WN, vitals as above (tall thin male) Neck trachea midline, no thyromegaly Respiratory normal respiratory effort, lungs clear to auscultation Cardiovascular RRR, no murmur, no edema Gastrointestinal (Abdomen) normal bowel sounds, soft, nontender, no hepatosplenomegaly Musculoskeletal no cyanosis or clubbing, extremities motor strength 5/5 Skin no rashes, warm and dry Neurologic patellar DTR's 2+ bilat, sensation intact and PERRL, EOMI, accommodation nl, no face palsy, no dysarthria Psychiatric A+Ox3, euthymic affect Lymphatic no cervical or axillary lymphadenopathy Discharge Data Allergies Allergy/AdvReac Type Severity Reaction Status Date / Time No Known Allergies Allergy Unverified 08/20/20 10:40 Consultations 08/20/20 11:26 ED Decision to Admit Stat 08/20/20 14:09 Consult General Surgery Routine Consult Pulmonology Routine 08/22/20 09:04 Burn CD for patient Stat Ordered Studies 08/20/20 16:57 CT chest diagnostic wo con Routine Hospital Course (1) Spontaneous pneumothorax: most likely primary spontaneous pneumothorax (PSP) patient is tall thin male reported that the pain started suddenly, no trauma, he is not a smoker CT chest with apical blebs on right side measuring 3.5cm, there are also a few subcentimeter apical blebs on left side ThoraVent chest tube removed morning of discharge on 08/22 repeat CXR four hours later around 1pm showed stability, minimal residual pneumothorax will discharge to home gave him a CD with all images to take home with him copied his chart to take home he plans to follow up with his PCP in [facility] and will be referred to a local thoracic surgeon Total Time Total Time Spent Total Time Spent (In Minutes): 35 Total Time Includes: Examination of the Patient, Discharge Planning, Medication Reconciliation, Communication With Other Providers (Dr. White) and Other (spoke with patient's father in the room, answered all questions) Discharge Plan Discharge Items Patient Disposition: Home - Self-Care Reason For Visit: PTX Discharge Diagnosis: Primary spontaneous pneumothorax Condition on Discharge: Good Goals: follow up with thoracic surgery back home Activity: Per Instructions section Lifting: None Bathing: No limitations Exercise/Sports: Gradually increase as tolerated Driving/Machine Use: No limitations Weightbearing: Full weightbearing Non-emergency contact: Primary Care Provider Call non-emergency contact if: your symptoms worsen Follow-up/Referrals: PCP,NO [Primary Care Provider] - Diet: Regular Addtl Attending Provider Instructions: Primary spontaneous pneumothorax due to small area of blebs in apex of right lung, measured 3.5cm, also have some very small, subcentimeter blebs in apex of left lung treated with right sided Thoravent, removed on 08/[address] White with pulmonology recommend you follow up with thoracic surgeon back home in [place] take disc with images so that they can view them and discuss options/recommendations Pending Studies at Discharge: No Stand-Alone Forms: My [employer], Smoking Cessation Medications and DC Order Prescriptions: No Action No Known Home Medications RF: 0 Discharge Orders: Discharge Order (Routine); Ordered 08/22/20 Ordered By: Cricket Ro/Other Patient Handouts: Chest Tubes Admission Data Admit Date/Time: 08/20/20 12:50 Attending Provider: Cricket Narvaez Admit Provider: Eric Sherman Primary Care Provider: PCP,NO Other Providers: Eric Sherman ; Yanci Jacinto Muqueet Other Interventions: Discharge Summary Assessment (RN) Last Done: 08/22/20 15:08 Coding Level of Care Code D/C Day Management >30 mins Diagnoses Spontaneous pneumothorax J93.83
== END 2020-08-22 16:55 | disposition home or self-care (01) ==
LOC: ED 09:24 → INTOOBSV 12:50 → SUATTDRO 12:50 → 2N 12:50